=== PATIENT | female | born 1990 | race Caucasian/White ===

== ENCOUNTER 2020-10-24 17:01 | Emergency (ER) | payer OTHER ==
[2020-10-24] MEDS ORDERED: Cyclobenzaprine 10 MG Tab PO ONE (17:02)
--- NOTE | 2020-10-24 17:32 | EDM.PDOC ---
ED HPI GENERAL MEDICAL PROBLEM - General Chief Complaint: Back Pain or Injury Stated Complaint: HURT LOWER BACK AT WORK Time Seen by Provider: 10/24/20 17:15 Source of Information: Reports: Patient, RN. 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 Had mild pain that evening that felt better when she was in bed. Today with doing more lifting and pulling at the [facility] her L low back is worse. Some radiation to her L buttocks. No urinary or bowel incontinence. No self tx. No hx of back issues. 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) Lower back pain, L>R Pain Score (Numeric/FACES): 7 - Related Data Allergies Allergy/AdvReac Type Severity Reaction Status Date / Time No Known Allergies Allergy Verified 10/24/20 17:09 Home Meds: Home Meds Cyclobenzaprine [Flexeril] 10 mg PO TID PRN #13 tab 10/24/20 [Rx] Past Medical History Other AUTOMATION QA LEAD History: G0 Psychiatric History: Reports: Depression Endocrine/Metabolic History: Reports: Obesity/BMI 30+, Other (See Below) Other Endocrine/Metabolic History: prediabetic Social & Family History - Family History Family Medical History: No Pertinent Family History - Tobacco Use Tobacco Use Status *Q: Former Tobacco User Years of Tobacco use: 8 Used Tobacco, but Quit: Yes Month/Year Tobacco Last Used: nov - Caffeine Use Caffeine Use: Reports: Energy Drinks, Soda - Recreational Drug Use Recreational Drug Use: No ED ROS GENERAL - Review of Systems Review Of Systems: See Below Constitutional: Reports: No Symptoms Musculoskeletal: Reports: Back Pain Skin: Reports: No Symptoms Neurological: Reports: No Symptoms Psychiatric: Reports: No Symptoms ED EXAM,LOWER BACK PAIN/INJURY - Physical Exam Exam: See Below Exam Limited By: No Limitations General Appearance: Alert, WD/WN, No Apparent Distress, Obese Eye Exam: Bilateral Eye: Normal Inspection Ears: Hearing Grossly Normal Nose: Normal Inspection, No Blood Throat/Mouth: Normal Lips, Normal Voice, No Airway Compromise Head: Atraumatic, Normocephalic Neck: Normal Inspection Respiratory/Chest: No Respiratory Distress Cardiovascular: Regular Rate, Rhythm, No Edema Back Exam: Normal Inspection, Muscle Spasm (L lumbar), Paraspinal Tenderness (L lumbar). No: CVA Tenderness (R), CVA Tenderness (L), Vertebral Tenderness Extremities: Normal Inspection, Normal Range of Motion, Non-Tender, No Pedal Edema Neurological: Alert, Normal Mood/Affect, Normal Dorsiflexion, CN II-XII Intact, No Motor/Sensory Deficits, Oriented x 3 DTR - Lower Extremities: 2+: Knee (R), Knee (L) Psychiatric: Normal Affect, Normal Mood Skin Exam: Warm, Dry, Intact, Normal Color, No Rash Course - Vital Signs Last Recorded V/S: Last Vital Signs Temp 36.4 C 10/24/20 17:05 Pulse 83 10/24/20 17:05 Resp 18 10/24/20 17:05 BP 123/63 10/24/20 17:05 Pulse Ox 100 10/24/20 17:05 Departure - Departure Time of Disposition: 17:45 Disposition: Home, Self-Care 01 Condition: Good Clinical Impression: Lumbar strain Qualifiers: Encounter type: initial encounter Qualified Code(s): S39.012A - Strain of muscle, fascia and tendon of lower back, initial encounter - Discharge Information *PRESCRIPTION DRUG MONITORING PROGRAM REVIEWED*: No *COPY OF PRESCRIPTION DRUG MONITORING REPORT IN PATIENT BASILIO: No Instructions: Muscle Strain, [id number] Referrals: PCP,None [Primary Care Provider] - Additional Instructions: Avoid lifting, bending or twisting for a few days. Warm heat to muscles will help to relax them. Take Flexeril every 8 hrs as needed for muscle relaxation, you should not drive when taking this. In addition you can take ibuprofen or Aleve AND acetaminophen for added relief. Recheck if not better by the end of the week. Sepsis Event Note (ED) - Evaluation Sepsis Screening Result: No Definite Risk - Focused Exam Vital Signs: Vital Signs Temp Pulse Resp BP Pulse Ox 10/24/20 17:05 36.4 C 83 18 123/63 100
== END 2020-10-24 18:06 | disposition home or self-care (01) ==
LOC: FB.ED 17:01
DX: S39.012A Strain of muscle, fascia and tendon of lower back, initial encounter (principal); E66.9 Obesity, unspecified; Z68.43 Body mass index [BMI] 50.0-59.9, adult; Z87.891 Personal history of nicotine dependence; X58.XXXA Exposure to other specified factors, initial encounter
CPT/HCPCS: 99283; A9270